=== PATIENT | male | born 1985 | race Caucasian/White ===

== ENCOUNTER 2017-08-09 01:14 | Emergency (ER) | payer MEDICAID ==
--- NOTE | 2017-08-09 01:45 | EDM.PDOC ---
ED HPI GENERAL MEDICAL PROBLEM - General Chief Complaint: Fever Stated Complaint: Fever, Cough Time Seen by Provider: 08/09/17 01:30 Source of Information: Reports: Family, Old Records, RN, RN Notes Reviewed History Limitations: Reports: Other (History obtained from senior care staff) - History of Present Illness INITIAL COMMENTS - FREE TEXT/NARRATIVE: Patient is brought to the ED at [facility] with his caregivers from the [facility] with concerns of temps and a dry cough. Patient has been exposed to RSV from residents at another nursing home. Temps started around 08/05 and have ranged from 99-102. Patient has been getting Mucinex for the dry cough. Patient urination has decreased somewhat. Patient seems to be more agitated. Patient has a runny nose with clear drainage. No eye or ear symptoms. No issues with BM' s. No SOB. Onset Date: 08/05/17 - Related Data Allergies Allergy/AdvReac Type Severity Reaction Status Date / Time Penicillins Allergy Other Verified 08/09/17 02:15 risperidone Allergy Other Verified 08/09/17 02:15 ED ROS GENERAL - Review of Systems Review Of Systems: See Below Constitutional: Reports: Fever, Chills, Decreased Appetite HEENT: Reports: Rhinitis. Denies: Ear Pain, Eye Discharge Respiratory: Reports: Cough (dry). Denies: Shortness of Breath Cardiovascular: Denies: Blood Pressure Problem GI/Abdominal: Denies: Abdominal Pain, Nausea, Vomiting Skin: Reports: No Symptoms Neurological: Reports: No Symptoms ED EXAM, GENERAL - Physical Exam Exam: See Below Exam Limited By: Other (patient is sitting in a wheelchair with restraints. Unable to fully assess due to agression) General Appearance: Alert Ears: Normal Canal, Normal TMs Ear Exam: Bilateral Ear: TM normal Nose: Normal Inspection Throat/Mouth: Other (not assess due to patient being uncooperative) Neck: Supple Respiratory/Chest: Decreased Breath Sounds, Rhonchi Cardiovascular: Normal Peripheral Pulses, Regular Rate, Rhythm Peripheral Pulses: 2+: Radial (L), Radial (R) GI/Abdominal: Normal Bowel Sounds, Soft, Non-Tender Neurological: Alert Skin Exam: Warm, Dry Course - Vital Signs Last Recorded V/S: Last Vital Signs Temp 38.8 C H 08/09/17 01:34 Pulse 95 08/09/17 01:34 Resp 18 08/09/17 01:34 BP 109/74 08/09/17 01:34 Pulse Ox 96 08/09/17 01:34 - Orders/Labs/Meds Orders: Active Orders 24 hr Category Date Time Status INFLUENZA A+B AG SCREEN [RM] Stat Lab 08/09/17 01:58 Ordered Azithromycin [Take Home: Azithromycin 250 MG, 2 Tab Med 08/09/17 02:25 Once Pack] 3 packet PO ONETIME ONE Departure - Departure Time of Disposition: 02:23 Disposition: Home, Self-Care 01 Condition: Good Clinical Impression: Atypical pneumonia - Discharge Information Instructions: Community-Acquired Pneumonia, Adult Referrals: Aung Ibanez MD [Primary Care Provider] - Forms: ED Department Discharge Additional Instructions: 1. Stay well hydrated and rest 2. Continue with Tylenol for fevers/discomfort 3. LOTS of water 4. Take 2 tablets of the antibiotic once a day for 3 days 5. Continue with Mucinex while on antibiotics 6. See Primary as symptoms warrant - Problem List Review Problem List Initiated/Reviewed/Updated: Yes - My Orders Last 24 Hours: My Active Orders 08/09/17 01:58 INFLUENZA A+B AG SCREEN [RM] Stat 08/09/17 02:25 Azithromycin [Take Home: Azithromycin 250 MG, 2 Tab Pack] 3 packet PO ONETIME ONE - Assessment/Plan Last 24 Hours: My Active Orders 08/09/17 01:58 INFLUENZA A+B AG SCREEN [RM] Stat 08/09/17 02:25 Azithromycin [Take Home: Azithromycin 250 MG, 2 Tab Pack] 3 packet PO ONETIME ONE Assessment:: Fevers Cough Negative Influenza screen Plan: Unable to obtain labs/xray due to patient not being cooperative. Will empirically treat for atypical pneumonia given assessment findings.
[2017-08-09] MEDS ORDERED: Take Home: Azithromycin 250 MG, 2 Tab Pack PO ONE (02:25)
== END 2017-08-09 02:35 | disposition home or self-care (01) ==
LOC: VM.ED 01:14
DX: J18.9 Pneumonia, unspecified organism (principal); Z88.0 Allergy status to penicillin; Z88.8 Allergy status to other drugs, medicaments and biological substances
CPT/HCPCS: 87804; 99283; A9270-GY

== ENCOUNTER 2021-08-09 20:25 | Emergency (ER) | payer MEDICAID | END 2021-08-09 20:54 | disposition home or self-care (01) | LOC: VM.ED 20:25 | DX: S09.90XA Unspecified injury of head, initial encounter (principal); R11.10 Vomiting, unspecified; Z88.0 Allergy status to penicillin; Z88.8 Allergy status to other drugs, medicaments and biological substances; W18.09XA Striking against other object with subsequent fall, initial encounter | CPT/HCPCS: 99283 ==

== ENCOUNTER 2021-09-08 17:16 | Inpatient (IN) | payer MEDICAID ==
[2021-09-08 18:44] LABS: PTT,PARTIAL THROMBOPLSTIN TIME 22.3 SEC (20.5-30.9)
[2021-09-08 18:58] LABS: CHLORIDE,CL 103 mmol/L (98-107); SODIUM,NA 137 mmol/L (136-145)
[2021-09-08 18:59] LABS: ANION GAP 16.2 mmol/L (5-15)
[2021-09-08] MEDS ORDERED: Lactated Ringers 1,000 ML IV ONE (19:30)
[2021-09-08] MEDS: Sodium Chloride 0.9% 1,000 ML IV SCH ×2 (19:40→22:07)
[2021-09-08] MEDS ORDERED: Acetaminophen 325 MG Tab PO PRN (20:04)
[2021-09-08] MEDS ORDERED: Non-Formulary Medication 1 Each (Lorazepam 2 MG Tablet) PO PRN (20:12)
[2021-09-08] MEDS ORDERED: Carbamide Peroxide 6.5% Otic Soln 15 ML Bottle EARBOTH SCH (20:15)
[2021-09-08] MEDS ORDERED: Divalproex Sodium 500 MG Tab.ER PO SCH (21:00)
[2021-09-08] MEDS ORDERED: Propranolol 20 MG Tab PO SCH (21:00)
[2021-09-08] MEDS ORDERED: carBAMazepine 200 MG Tab PO SCH (21:00)
[2021-09-08] MEDS ORDERED: PROPRANOLOL 40 MG PO SCH (21:00)
[2021-09-08] MEDS ORDERED: ZIPRASIDONE HCL 60 MG PO SCH (21:00)
[2021-09-08] MEDS ORDERED: LORazepam 1 MG Tab PO STA (21:40)
[2021-09-09 00:52] LABS: ANION GAP 19.4 mmol/L (5-15); CHLORIDE,CL 104 mmol/L (98-107); SODIUM,NA 137 mmol/L (136-145)
[2021-09-09] MEDS ORDERED: MINERAL OIL MC SCH (09:00)
[2021-09-09] MEDS ORDERED: Sertraline 100 MG Tab PO SCH (09:00)
[2021-09-09] MEDS ORDERED: Enoxaparin 40 MG/0.4 ML Syringe SUBCUT SCH (09:00)
[2021-09-09] MEDS ORDERED: Multivitamins with Iron/Calcium/Folic Acid/Minerals Tab PO SCH (09:00)
== END 2021-09-09 00:08 | disposition expired | DRG 682 ==
LOC: VM.ED 17:16 → VM.MS 19:06
PROVIDERS: ADMIT Family Medicine; ATTEND Family Medicine
PROC: 0BH17EZ Insertion of Endotracheal Airway into Trachea, Via Natural or Artificial Opening (ICD-10-PCS; principal; 2021-09-09)
PROC: 5A12012 Performance of Cardiac Output, Single, Manual (ICD-10-PCS; 2021-09-09)
DX: N17.9 Acute kidney failure, unspecified (principal); I26.99 Other pulmonary embolism without acute cor pulmonale; U07.1 COVID-19; Q04.0 Congenital malformations of corpus callosum; A08.39 Other viral enteritis; E87.2 Acidosis; E86.0 Dehydration; I46.9 Cardiac arrest, cause unspecified; E87.5 Hyperkalemia; E03.9 Hypothyroidism, unspecified; G40.909 Epilepsy, unspecified, not intractable, without status epilepticus; F39 Unspecified mood [affective] disorder; G80.9 Cerebral palsy, unspecified; R06.03 Acute respiratory distress; E03.3 Postinfectious hypothyroidism; F79 Unspecified intellectual disabilities; K59.00 Constipation, unspecified; R62.50 Unspecified lack of expected normal physiological development in childhood; R32 Unspecified urinary incontinence; F91.8 Other conduct disorders; F80.9 Developmental disorder of speech and language, unspecified; F81.9 Developmental disorder of scholastic skills, unspecified; Z79.899 Other long term (current) drug therapy; Z88.0 Allergy status to penicillin; Z88.8 Allergy status to other drugs, medicaments and biological substances; Z87.820 Personal history of traumatic brain injury
CPT/HCPCS: 36415; 71045; 80053; 83605; 83735; 84100; 84145; 84443; 84484; 85025; 85610; 85730; 86140; 87040; 99284; 99285-25; A9270-GY; J7030